=== PATIENT | male | born 1965 | race Caucasian/White ===

== ENCOUNTER → 2017-09-22 | Outpatient (CLI) | payer BC ==
[~2017-09-22] VITALS: Ht 185.4 cm; Wt 111.1 kg
[~2017-09-22] MED LIST: ALEVE220 M1 PO; ASTEPRO205.5 MCG/ NASAL; ATORVASTATIN CA40 MG PO; AUGMENTIN 875875 M1 PO; COLACE100 MG PO; CRESTOR10 MG PO; DEXILANT60 MG PO; DIAZEPAM 5 MG5 M1 PO; FLAGYL500 MG PO; FLONASE 0.05%50 MCG NASAL; HYDROCODON-ACE1 EAC7 PO; MULTIVITAMINS PO; NEXIUM40 MG PO; ONE DAILY MULT1 EAC2 PO; PROBIOTIC1 EAC1 PO; TOPROL XL25 MG PO; VALIUM5 MG PO; VITAMIN B122500 MCG PO; XANAX 0.25 MG0.25 MG PO
--- NOTE | ~2017-09-22 | P ---
[facility] [place] [address] PROCEDURE REPORT Name: KRISTIAN GONZALES Room #: REG Porfirio Martínez#: [id number] Admission: 09/22/17 Attend Phys: Tonny Garces Discharge: Date of : 69 Report #: [id number] THIS REPORT FOR: //name// CC: Tonny Patel DATE OF SERVICE: 09/22/2017 PROCEDURE PERFORMED: Upper endoscopy with biopsies. 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 Last upper endoscopy, there was no evidence of Rangel's. This was 2 years ago. The patient was having chest pain in May, June of last year despite taking Nexium b.i.d. He was treated for possible thrush, later switched to Dexilant b.i.d. and is now under good control. His cardiac workup was negative. He denies any dysphagia or odynophagia. DESCRIPTION OF PROCEDURE: The risks and benefits of the procedure were explained to the patient. Those risks including but not limited to bleeding, perforation and the risk of sedation. He understood these risks and gave informed consent. Sedation was given using propofol per Anesthesia. Next, using a standard Aradigmn upper endoscope, the scope was placed in the patient's mouth and advanced under direct vision through the esophagus, stomach and into the second portion of the duodenum. The larynx, upper and mid esophagus were all normal. In the distal esophagus at the GE junction, a single possible area of Rangel's was noted. Biopsies were obtained. No evidence of esophagitis or stricture. Upon entering the stomach, a small hiatal hernia was noted. There were several fundic gland polyps again noted in the gastric mucosa, otherwise normal. The pylorus was normal and patent. The duodenal bulb, first and second portion were all normal. The scope was then withdrawn and the procedure terminated. The patient tolerated the procedure well. IMPRESSION: 1. 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 2. Hiatal hernia. 3. Gastric polyps. 4. Otherwise, normal upper endoscopy. RECOMMENDATIONS: 1. Await biopsy results. 2. Continue b.i.d. Dexilant. [address] [address] PROCEDURE REPORT Name: KRISTIAN GONZALES Room #: REG [facility] [id number] Admission: 09/22/17 Attend Phys: Tonny Garces Discharge: Date of : 69 Report #: [id number] Thank you for allowing me to participate in his care. <ELECTRONICALLY SIGNED> By: Tonny Kline MD 09/24/17 [id number] Tonny Kline MD /nt
--- NOTE | ~2017-09-22 | S ---
[facility] [place] [address] SURGICAL PATH RPT PROCEDURE Name: JANETKRISTIAN West Room #: REG [facility].#: [id number] Admission: 09/22/17 Date of : 69 Discharge: Report #: [id number] Path Case #: [id number] PATHOLOGY REPORT COLLECTION DATE: 09/22/2017 RECEIVED DATE: 09/22/2017 SUBMITTING PHYS: Dr. Tonny Kline OTHER PHYS: Dr. Senait Patel SPECIMEN(S) RECEIVED: A.Distal esophagus * * * * * * * * * * * * FINAL DIAGNOSIS: Gastroesophageal mucosa, distal esophagus rule out Rangel's endoscopic biopsy: - Columnar fundic-type gastric mucosa with moderate acute and chronic inflammation. - Squamous mucosa with mild esophagitis. - Negative for intestinal metaplasia or dysplasia. COMMENT: Co-review: Dr. Sveta March. (IUV:rlm; 09/23/2017) PATHOLOGIST: Love Hernandez M.D. REPORT ELECTRONICALLY SIGNED BY: Love Hernandez M.D. DATE/TIME: 09/23/2017 14:29 * * * * * * * * * * * * GROSS PATHOLOGY: Received in formalin labeled "Kristian Gonzales, BX of distal esophagus, rule out Rangel's," are 2 segments of sanchez soft tissue measuring 0.7 x 0.2 x 0.3 cm in aggregate dimensions and ranging from 0.3 to 0.4 cm in maximum dimension. The specimen is submitted entirely in cassette A1. (TSD; 09/22/2017) CLINICAL HISTORY: Pre-OP DX: Hx Rangel's Post-OP DX: Rule out Rangel's INITIAL CPT CODE(S): A; 00919 Professional services performed by [facility] at [address] [address] SURGICAL PATH RPT PROCEDURE Name: KRISTIAN GONZALES Room #: REG CLPorfirio Herrera.#: [id number] Admission: 09/22/17 Date of : 69 Discharge: Report #: [id number] Path Case #: [id number] [address], [place] [address] [facility] [address] [place] [address], [facility] [address] [address]. [place] [address] PHONE: [phone] DIRECTOR: Noah Lawson M.D. * * * END OF REPORT * * *
== END | disposition home or self-care (01) ==
LOC: GI 08:19
DX: K22.8 Other specified diseases of esophagus (principal); K44.9 Diaphragmatic hernia without obstruction or gangrene; K31.7 Polyp of stomach and duodenum; K20.8 Other esophagitis; F41.8 Other specified anxiety disorders; G47.33 Obstructive sleep apnea (adult) (pediatric); E78.00 Pure hypercholesterolemia, unspecified; K21.9 Gastro-esophageal reflux disease without esophagitis; Z98.890 Other specified postprocedural states; Z87.891 Personal history of nicotine dependence; Z79.899 Other long term (current) drug therapy
CPT/HCPCS: 62110; 62900